=== PATIENT | female | born 1985 | race Caucasian/White ===

== ENCOUNTER 2016-10-17 12:40 | Emergency (ER) | payer SELFPAY ==
[2016-10-17 13:08] VITALS: BP 129/77
--- NOTE | 2016-10-17 13:31 | ERNOTE ---
ENT HPI Date of Service: 10/17/16 Presenting Symptoms: eye pain Time Seen by Provider: 10/17/16 13:21 Source: patient, RN notes reviewed Exam Limitations: no limitations - Immun/Allergies/Home Medications Immunizations: IMMUNIZATION HX Immunizations Up to Date No History of Influenza Vaccine Yes Allergies/Adverse Reactions: Allergies Allergy/AdvReac Type Severity Reaction Status Date / Time tramadol Allergy Anaphylaxis Verified 10/17/16 13:09 Home Medications: HOME MEDICATIONS Albuterol Sulfate [Proair Hfa] 1 - 2 puff IH Q4H PRN 10/17/16 [Last Taken Unknown] Budesonide/Formoterol Fumarate [Symbicort 160-4.5 Mcg Inhaler] 1 puff IH BID 03/27 [Last Taken Unknown] Gentamicin Sulfate [Gentamicin 0.3% Ophthalmic Solution] 1 drop RIGHTEYE QID #1 btl 10/17/16 [Last Taken Unknown] HYDROcodone/ACETAMINOPHEN [Hydrocodon-Acetaminophen 5-325] 1 each PO TID PRN # 20 tablet 10/17/16 [Last Taken Unknown] - History of Present Illness Narrative: 31-year-old female presenting to the emergency room after she was picking up sticks at home and she stepped on a stick and that stick hit her in the right eye. Patient complains of right eye pain with photophobia Date (Duration): 10/17/16 ENT Location: Present: eye (R) Prearrival Treatment: Present: no prearrival treatment Modifying Factors - Improves: Reports: nothing Modifying Factors - Worsens: Reports: activity Associated Symptoms - ENT: Reports: denies symptoms. Denies: fever, malaise, poor fluid intake Review of Systems - Review of Systems Constitutional: Present: no symptoms reported EYE: Present: see HPI, eye pain, tearing. Absent: blurred vision, double vision ENT: Present: no symptoms reported Respiratory: Present: no symptoms reported Cardiology: Present: no symptoms reported Gastrointestinal/Abdominal: Present: constipation Genitourinary: Present: no symptoms reported Musculoskeletal: Present: no symptoms reported Skin: Present: no symptoms reported Neurological: Present: no symptoms reported Endocrine: Present: no symptoms reported Hematologic/Lymphatic: Present: no symptoms reported Psych: Present: no symptoms reported All Other Systems: All systems neg except as marked - Patient's Past Medical History Patient History - Cardiac/Respiratory: Asthma Patient History - Surgical Procedures: LMP (females 10-50): last week - Social History Living Situations: home Smoking Status: Never smoker Alcohol Use: occasionally Drug Use: none - Immunizations Immunizations Up to Date: No History of Influenza Vaccine: Yes ED Progress - Vital Signs Vital Signs: Vital Signs 10/17/16 13:06 Temperature 37.1 C Pulse Rate 64 Respiratory 16 Rate Blood Pressure 129/77 O2 Sat by Pulse 97 Oximetry - Progress/Reassessment Chief Complaint: Eye Injury/Trauma Departure Clinical Impression: Corneal abrasion, right Qualifiers: Encounter type: initial encounter Qualified Code(s): S05.01XA - Injury of conjunctiva and corneal abrasion without foreign body, right eye, initial encounter - Departure Disposition: Home self-care Condition: Stable Instructions: Corneal Abrasion, [id number] Additional Instructions: Continue any previous medications as directed. May take [id number] pain medications for pain. Medical follow-up eye doctor appointment in the next 2-3 days if needed. Return to the emergency room if symptoms persist or new symptoms arise. Prescriptions: Gentamicin Sulfate [Gentamicin 0.3% Ophthalmic Solution] 1 drop RIGHTEYE QID #1 btl HYDROcodone/ACETAMINOPHEN [Hydrocodon-Acetaminophen 5-325] 1 each PO TID PRN # 20 tablet PRN Reason: Pain
== END 2016-10-17 14:02 | disposition home or self-care (01) ==
LOC: ER 12:40
DX: S05.01XA Injury of conjunctiva and corneal abrasion without foreign body, right eye, initial encounter (principal); X58.XXXA Exposure to other specified factors, initial encounter; Y93.89 Activity, other specified; Y92.007 Garden or yard of unspecified non-institutional (private) residence as the place of occurrence of the external cause

== ENCOUNTER 2016-11-18 16:36 | Emergency (ER) | payer SELFPAY ==
[2016-11-18 16:44] VITALS: BP 145/71
[2016-11-18] MEDS ORDERED: KETOROLAC TROMETHAMINE 60 MG/2 ML VIAL IM ONE (17:14)
[2016-11-18] MEDS ORDERED: ORPHENADRINE CITRATE 30 MG/ML VIAL ONE (17:14)
[2016-11-18] MEDS: ORPHENADRINE CITRATE 30 MG/ML VIAL IM ONE (17:18)
[2016-11-18] MEDS: KETOROLAC TROMETHAMINE 60 MG/2 ML VIAL IM ONE (17:18)
--- NOTE | 2016-11-18 17:21 | ERNOTE ---
Upper Extremity HPI - Narrative Date of Service: 11/18/16 - General Extremities Pain Location: shoulder: right Time Seen by Provider: 11/18/16 17:06 Source: patient Exam Limitations: no limitations - Immun/Allergies/Home Medications Immunizations: IMMUNIZATION HX Immunizations Up to Date No History of Influenza Vaccine Yes Allergies/Adverse Reactions: Allergies Allergy/AdvReac Type Severity Reaction Status Date / Time tramadol Allergy Anaphylaxis Verified 11/18/16 16:44 Home Medications: HOME MEDICATIONS Albuterol Sulfate [Proair Hfa] 1 - 2 puff IH Q4H PRN 10/17/16 [Last Taken Unknown] Budesonide/Formoterol Fumarate [Symbicort 160-4.5 Mcg Inhaler] 1 puff IH BID 03/27 [Last Taken Unknown] Cyclobenzaprine HCl [Flexeril] 10 mg PO TID PRN #30 tab 11/18/16 [Last Taken Unknown] Naproxen [Naprosyn] 500 mg PO BID PRN #60 tab 11/18/16 [Last Taken Unknown] - History of Present Illness Narrative: Pt. comes in with c/o R [id number] pain that she had had occasionally after over working it for a long time ( Pt. does not know specifics, years per pt) that worsened suddenly the past two days. Pt. denies any SOB, CP, NVD, numbness, tingling, alleviating factors, or prehospital treatment. Pt. states that movement exacerbates the pain. Pt. denies any specific injury. Review of Systems - Review of Systems Constitutional: Present: no symptoms reported. Absent: recent illness, fever, chills, weakness, fatigue, malaise EYE: Present: no symptoms reported ENT: Present: no symptoms reported Respiratory: Present: no symptoms reported. Absent: shortness of breath, cough , wheezing Cardiology: Present: no symptoms reported. Absent: chest pain, palpitations, edema Gastrointestinal/Abdominal: Present: no symptoms reported Genitourinary: Present: no symptoms reported Musculoskeletal: Present: joint pain - R shoulder Skin: Present: no symptoms reported Neurological: Present: no symptoms reported. Absent: headache, dizziness/light- headedness, numbness, tingling Endocrine: Present: no symptoms reported Hematologic/Lymphatic: Present: no symptoms reported All Other Systems: All systems neg except as marked - Patient's Past Medical History Patient History - Cardiac/Respiratory: Asthma Patient History - Surgical Procedures: - Social History Living Situations: home Alcohol Use: occasionally Drug Use: none - Immunizations Immunizations Up to Date: No History of Influenza Vaccine: Yes Physical Exam - Physical Exam General Appearance: Present: wd/wn, alert, no apparent distress Eye Exam: Normal inspection: bilateral, PERRL: bilateral, EOMI: bilateral Ears, Nose, Throat: Present: normal ENT inspection, normal pharynx Neck: Present: normal inspection, nontender, supple, full range of motion Respiratory: Present: no respiratory distress, normal breath sounds, no accessory muscle use, chest nontender, lungs clear. Absent: rales, rhonchi, wheezing Cardiovascular/Chest: Present: regular rate, rhythm, no murmur, normal peripheral pulses Back Exam: Present: normal inspection Extremity Exam: Present: decreased range of motion - R shoulder abduction and front raise, other - ac joint tenderness Neurological Exam: Present: alert, oriented, normal mood/affect, no motor/ sensory deficits Skin Exam: Present: normal color, warm/dry. Absent: pallor, skin rash ED Progress - Vital Signs Patient's Vital Signs:: I have reviewed the patient's vital signs. Vital Signs: Vital Signs 11/18/16 16:39 Temperature 36.7 C Pulse Rate 100 Respiratory 12 Rate Blood Pressure 145/71 O2 Sat by Pulse 100 Oximetry - X-Ray X-Ray #1 X-Ray: shoulder Interpretation: Reviewed by me X-ray Comments: Findings: No acute fracture or dislocation. Alignment is anatomic. Mineralization is normal. No degenerative change. No destructive osseous lesions. The joint spaces are maintained. The visualized lung, ribs, and soft tissues are unremarkable. Impression: No acute osseous findings. - Progress/Reassessment Chief Complaint: Shoulder Injury/Pain Progress:: Improved Departure Clinical Impression: Right shoulder strain Qualifiers: Encounter type: initial encounter Qualified Code(s): S46.911A - Strain of unspecified muscle, fascia and tendon at shoulder and upper arm level, right arm , initial encounter - Departure Disposition: Home self-care Condition: Good Instructions: Tendon Injury, Form - Excuse from Work, School, or Physical Activity Additional Instructions: Please follow up with ortho pedist by calling office for appointment in the next two weeks. Please rest arm elevate using sling and apply heat. Prescriptions: Cyclobenzaprine HCl [Flexeril] 10 mg PO TID PRN #30 tab PRN Reason: MUSCLE SPASMS Naproxen [Naprosyn] 500 mg PO BID PRN #60 tab PRN Reason: Pain
== END 2016-11-18 18:13 | disposition home or self-care (01) ==
LOC: ER 16:36
DX: S46.911A Strain of unspecified muscle, fascia and tendon at shoulder and upper arm level, right arm, initial encounter (principal); J45.909 Unspecified asthma, uncomplicated